=== PATIENT | female | born 1955 | race Asian ===

== ENCOUNTER 2020-12-19 17:32 | Emergency (ER) | payer OTHER ==
[~2020-12-19] VITALS: Ht 154.9 cm; Wt 55.7 kg
--- NOTE | 2020-12-19 17:37 | NUR ---
EKG IN TRIAGE
--- NOTE | 2020-12-19 17:59 | NUR ---
Pt states she was diagnosed with "irregular HR" in November when she went to the ER for palpiations. Pt reports changes in BP meds, palpitations and ORDONEZ. Connected to all monitors. PACs noted on the monitor. resident at bedside for negrito.
[2020-12-19 18:36] LABS: BASOPHILS % (AUTO) 0 % (0-1); EOSINOPHILS % (AUTO) 1 % (1-7); LYMPHOCYTES % (AUTO) 12 % (22-44); MEAN CORPUSCULAR HEMOGLOBIN 29.5 pg (27.0-34.8); MEAN CORPUSCULAR HGB CONC 33.1 g/dL (32.4-35.8); MEAN PLATELET VOLUME 8.6 fL (7.4-10.4); MONOCYTES % (AUTO) 4 % (2-9); NEUTROPHILS % (AUTO) 83 % (42-75); PLATELET COUNT 230 x10^3/uL (130-400); RED BLOOD COUNT 4.55 x10^6/uL (3.82-5.3); RED CELL DISTRIBUTION WIDTH 13.3 % (9.6-15.2)
[2020-12-19 18:46] LABS: ALBUMIN 3.6 g/dL (3.4-5.0); ANION GAP 10 mmol/L (5-15); CALCIUM 9.5 mg/dL (8.5-10.1); CHLORIDE 100 mmol/L (98-107)
[2020-12-19 18:51] LABS: CREATININE 0.79 mg/dL (0.55-1.02); TROPONIN I < 0.015 ng/mL (0.000-0.045)
--- NOTE | 2020-12-19 18:53 | NUR ---
Bedside report to JESICA Dominguez and JESICA Spears. To assume full care.
--- NOTE | 2020-12-19 18:55 | NUR ---
RECEIVED REPORT FROM ALE MOONEY. TRANSFER OF CARE.
--- NOTE | 2020-12-19 18:56 | NUR ---
PT RESTING IN BED WITH AT BEDSIDE. NADN. BED IN LOW POSITION. RAILS ENGAGED. CALL LIGHT ON LAP. WCTM.
[2020-12-19] MEDS ORDERED: ACETAMINOPHEN 325 MG TABLET ONE (19:26)
--- NOTE | 2020-12-19 19:29 | NUR ---
PT COMPLAINING OF ORDONEZ. MEDICATED PER EMAR.
[2020-12-19] MEDS ORDERED: ACETAMINOPHEN 325 MG TABLET PO ONE (19:30)
--- NOTE | 2020-12-19 20:24 | NUR ---
Patient is resting comfortably in bed. Bed in lowest, rails engaged, call light on lap. Vital Signs within normal limits. WCTM.
[2020-12-19 20:30] LABS: TROPONIN I < 0.015 ng/mL (0.000-0.045)
[2020-12-19 21:15] VITALS: BP 142/77
--- NOTE | 2020-12-19 21:17 | NUR ---
Patient given discharge instructions and they have confirmed that they understand the instructions. Patient ambulatory with steady gait. NAD, all questions answered appropriately, denies additional needs at this time. No personal belongings left in room after discharge.
== END 2020-12-19 21:18 | disposition home or self-care (01) ==
LOC: ED 19:18
DX: I10 Essential (primary) hypertension (principal); R07.89 Other chest pain; R00.2 Palpitations; R51.9 Headache, unspecified; E78.5 Hyperlipidemia, unspecified
CPT/HCPCS: 36415; 71045; 80048; 82040; 84484; 85025; 93005; 99285